=== PATIENT | male | born 1960 | race Caucasian/White ===

== ENCOUNTER 2017-11-02 22:33 | Emergency (ER) | payer BC ==
[~2017-11-02] VITALS: Ht 186.7 cm; Wt 132.2 kg
[2017-11-02 22:36] VITALS: Ht 186.7 cm; Wt 132.2 kg
[2017-11-02] MEDS ORDERED: LIDOCAINE 1% BUFFERED INJ 20 ML VIAL INFIL STA (22:49)
--- NOTE | 2017-11-02 23:14 | EMERGENCY ROOM VISIT NOTE ---
ED Visit Note First contact with patient: 22:41 CHIEF COMPLAINT: Multiple finger lacerations HISTORY OF PRESENT ILLNESS: This right hand dominant 57-year-old male patient presents to the emergency department, ambulatory, approximately 3 hours after cutting the tip of the right ring finger and lateral aspect of the left little finger. The patient was cutting cabbage with a sharp knife when he accidentally sliced the fingers. The bleeding has not stopped. Denies weakness or numbness of the fingers. The patient rates the pain as sharp and to/10. The patient denies any other injuries. The patient's Tetanus shot is not up to date. REVIEW OF SYSTEMS: A 6 system review of systems was completed with positives and pertinent negatives listed in the HPI. ALLERGIES: None MEDICATIONS: Meloxicam, oxycodone, furosemide, stool softener PMH: Hypertension, chronic pain SOCIAL HISTORY: The patient lives locally with family. He admits to tobacco use. He denies drug, alcohol use. PHYSICAL EXAM: Vital Signs: Reviewed Nurse's notes, vital signs stable. GENERAL : This is a 57-year-old white male, in no acute distress, well-developed, well- nourished. SKIN: There is a 0.5 cm long laceration on the distal aspect of the right ring finger and a 0.5 cm long laceration on the lateral aspect of the left little finger, just lateral to the nail. The edges gape apart with traction. There is no foreign material in the wounds and they look clean. There is minimal active bleeding. No deep structures such as tendons, bones, or significant blood vessels are seen in the base of the wounds. Normal strength and movement of the fingers. Capillary refill less than 2 seconds. Normal sensation to light and sharp touch. EMERGENCY DEPARTMENT COURSE: I examined the patient. Verbal consent was obtained to perform the procedure. Using sterile technique the wounds were cleansed with Betadine. The areas were sterilely draped. A total of 1 ml of 1% buffered lidocaine was used to locally anesthetize the lacerations. Once the patient was anesthetized, the wounds were copiously irrigated under pressure with sterile saline. The wounds were explored and were as described above. The right ring finger laceration was repaired using 3 simple interrupted 5-0 nylon sutures with the wound edges being well approximated. The left fifth finger laceration was repaired using 2 simple interrupted 5-0 nylon sutures with the wound edges being well approximated. The patient tolerated the procedure well. Hemostasis was achieved. The areas were cleaned with sterile saline and dressed with bacitracin ointment and bandages. The patient was given Tdap immunization. The patient was discharged home in good condition. I attest that I have personally reviewed the patient's current medication list. Patient was found to have normal blood pressure on screening and does not require follow-up. Differential diagnosis includes laceration, contusion, fracture, sprain/strain, tendon or ligament injury, neurovascular compromise, foreign body, assault, and others DIAGNOSIS: Left 5th finger laceration Right ring finger laceration, need for tetanus prophylaxis The chart was completed utilizing [employer] voice recognition software. Grammatical errors, random word insertions, pronoun errors, and incomplete sentences are an occasional consequence of this system due to software limitations, ambient noise, and hardware issues. Any formal questions or concerns about the content, text, or information contained within the body of this dictation should be directly addressed to the provider for clarification. Vital Signs Date Time Temp Pulse Resp B/P (MAP) Pulse Ox O2 Delivery O2 Flow Rate FiO2 11/02/17 22:36 36.8 73 16 158/94 98 Room Air Departure Information Impression Primary Impression: Laceration of right ring finger Additional Impressions: Laceration of left little finger Need for tetanus, diphtheria, and acellular pertussis (Tdap) vaccine Dispostion Home / Self-Care Condition GOOD Referrals No Doctor, Assigned (PCP) Patient Instructions ED Laceration Hand, My [facility] Additional Instructions You have received 5 total sutures on your fingers. These sutures are NOT dissolvable and WILL need to be removed by a health care provider in 10-12 days. You can return to the Emergency Department or contact your Primary Care Provider to have the sutures removed. Proper wound care is essential for adequate wound healing and infection prevention. You can shower and clean the wound with soap and water. Do not scour over the wound, pat dry with a towel. Do not submerse the wound (i.e. bathe or dish wash) until the sutures have been removed. You can use an antibiotic ointment with a dressing over the wound for the next 3-4 days. After this time you may leave the wound dry and open to the air. If crust develops over the wound you can use a Q-tip to apply a 1:1 peroxide:water solution to clean the wound. Look for signs of infection of the wound including: increased pain, swelling, foul discharge, streaking, or increased temperature. If any of these are noticed you should return to the Emergency Department for further assessment and treatment. As with any laceration you may have received nerve damage to the surrounding tissues. This damage may or may not be permanent. You should keep the area covered with sunscreen for the first 6 months to 1 year when at risk for exposure to help minimize scarring. For pain control, you can use the following [id number]-koaubni medicines (if >12 yo): Ibuprofen(Motrin, Advil) may be used for fever or pain. Use 600mg every six hours as needed. Take with food. Avoid using more than 2400mg in a 24 hour period. Do not use 2400mg per day for more than three consecutive days without physician direction. Prolonged inappropriate use can lead to stomach upset or ulcers. (AND/OR) Acetaminophen(Tylenol) may be used for fever or pain. Use 1000mg every six hours as needed. Avoid using more than 3000mg in a 24 hour period. He did receive a tetanus vaccination here in the emergency department. Please inform your primary care provider of this vaccine so it can be marked in her medical record. Return to the emergency department if your symptoms worsen despite treatment course outlined above. Problem Qualifiers Primary Impression: Laceration of right ring finger Encounter type: initial encounter Damage to nail status: without damage Foreign body presence: without foreign body Qualified Codes: S61.214A - Laceration without foreign body of right ring finger without damage to nail, initial encounter Additional Impressions: Laceration of left little finger Encounter type: initial encounter Damage to nail status: without damage Foreign body presence: without foreign body Qualified Codes: S61.217A - Laceration without foreign body of left little finger without damage to nail, initial encounter
[2017-11-02] MEDS ORDERED: DIPHTHERIA/TETANUS/PERTUSSIS 0.5 ML SYR/VIAL IM. ONE (23:15)
[2017-11-02 23:24] VITALS: BP 155/91; PULSE 75; TEMP 36.8; O2SAT 98
== END 2017-11-02 23:24 | disposition home or self-care (01) ==
LOC: C.EDB 22:35 → C.EDC 23:24
DX: S61.214A Laceration without foreign body of right ring finger without damage to nail, initial encounter (principal); S61.217A Laceration without foreign body of left little finger without damage to nail, initial encounter; Z23 Encounter for immunization; I10 Essential (primary) hypertension; G89.29 Other chronic pain; Z79.899 Other long term (current) drug therapy; F17.200 Nicotine dependence, unspecified, uncomplicated; W26.0XXA Contact with knife, initial encounter